=== PATIENT | female | born 1970 | race Caucasian/White ===

== ENCOUNTER 2017-08-03 07:43 | Emergency (ER) | payer BC ==
[~2017-08-03] VITALS: Ht 160 cm; Wt 61.0 kg
[2017-08-03 12:17] VITALS: BP 162/84
== END 2017-08-03 12:17 | disposition home or self-care (01) ==
LOC: ED 07:43
DX: R51 Headache (principal); R11.2 Nausea with vomiting, unspecified
CPT/HCPCS: J0780; J1170; J1200; J1885; J3010; J3030; J7030; Q0162